=== PATIENT | female | born 1985 | race Caucasian/White ===

== ENCOUNTER 2016-12-10 13:57 | Inpatient (IN) | payer OTHER ==
[~2016-12-10] VITALS: Ht 167.6 cm; Wt 84.9 kg
[2016-12-14] MEDS ORDERED: METOCLOPRAMIDE HCL 5 MG/ML 2 ML VIAL IVP PRN (15:00)
[2016-12-14] MEDS ORDERED: RINGERS SOLUTION,LACTATED 1,000 ML IV PRN (15:00)
[2016-12-14] MEDS ORDERED: CITRIC ACID/SODIUM CITRATE 30 ML SOLUTION UDCUP PO PRN (15:00)
[2016-12-14] MEDS ORDERED: PREN1TAB80 PO (15:35)
[2016-12-14 15:37] LABS: BASOPHILS # (AUTO) 0.14 K/uL (0.00-0.20); BASOPHILS % (AUTO) 1.2 % (0.0-2.0); EOSINOPHILS # (AUTO) 0.07 K/uL (0.00-0.70); EOSINOPHILS % (AUTO) 0.55 % (1.0-6.0); HEMATOCRIT 40.3 % (36-46); HEMOGLOBIN 13.5 g/dL (12.0-16.0); LYMPHOCYTES # (AUTO) 2.2 K/uL (1.0-4.8); LYMPHOCYTES % (AUTO) 17.3 % (22.0-44.0); MEAN CORPUSCULAR HEMOGLOBIN 31.1 pg (26.0-34.0); MEAN CORPUSCULAR HGB CONC 33.5 G/dL (31.0-37.0); MEAN CORPUSCULAR VOLUME 93 fL (80-100); MONOCYTES # (AUTO) 0.5 K/uL (0.1-1.0); NEUTROPHILS # (AUTO) 9.6 K/uL (1.8-7.7); RED BLOOD CELL COUNT(AUTO) 4.34 MIL/uL (4.00-5.20); RED CELL DISTRIBUTION WIDTH 13.3 % (11.5-14.5); WHITE BLOOD COUNT (AUTO) 12.4 K/uL (4.5-11.0)
[2016-12-14] MEDS: RINGERS SOLUTION,LACTATED 1,000 ML IV SCH ×2 (15:39→20:27)
[2016-12-14] MEDS ORDERED: AMPICILLIN SODIUM 2 GM/NS 100 ML IV ONE (15:45)
[2016-12-14] MEDS ORDERED: INFLUENZA VIRUS VACCINE QVS 2017-18 (3YR+)/PF 60 MCG/0.5 ML SYRINGE IM ONE (16:00)
[2016-12-14] MEDS ORDERED: DINOPROSTONE 10 MG VAGINAL SUPPOSITORY VG ONE (16:15)
[2016-12-14] MEDS ORDERED: OXYGEN THERAPY IH SCH (20:00)
[2016-12-14] MEDS: AMPICILLIN SODIUM 1 GM/NS 50 ML IV SCH (20:26)
[2016-12-15] MEDS: AMPICILLIN SODIUM 1 GM/NS 50 ML IV SCH ×4 (00:29→12:15)
[2016-12-15] MEDS ORDERED: -PHARMACY NOTE- MISC ONE ×2 (04:15)
[2016-12-15] MEDS ORDERED: OXYTOCIN 30 UNITS/LACT RINGERS 500 ML IV PRN (05:36)
[2016-12-15] MEDS: FentaNYL CITRATE-PF 100 MCG/2 ML VIAL IVP PRN ×2 (06:26→06:31)
[2016-12-15] MEDS: RINGERS SOLUTION,LACTATED 1,000 ML IV SCH ×2 (08:36→12:08)
[2016-12-15] MEDS ORDERED: BUPIVACAINE HCL/PF 0.25% 10 ML VIAL ONE (08:54)
[2016-12-15] MEDS ORDERED: LIDOCAINE HCL/PF 2% 5 ML VIAL ONE (08:54)
[2016-12-15] MEDS ORDERED: BUPIVACAINE HCL 0.125%/NS/PF 100 ML ED ONE (09:03)
[2016-12-15] MEDS ORDERED: FentaNYL CITRATE-PF 100 MCG/2 ML VIAL ONE (09:05)
[2016-12-15] MEDS ORDERED: FentaNYL/BUPIV 0.125%/NS/PF 200 ML ED PRN (09:44)
[2016-12-15] MEDS ORDERED: DiphenhydrAMINE HCL 50 MG/ML VIAL IVP PRN (09:45)
[2016-12-15] MEDS ORDERED: PROMETHAZINE HCL 12.5 MG in SODIUM CHLORIDE 0.9% 50 ML IV PRN (09:45)
[2016-12-15] MEDS ORDERED: ONDANSETRON HCL 4 MG/2 ML VIAL IVP PRN (09:45)
[2016-12-15] MEDS ORDERED: NALBUPHINE HCL 10 MG/ML VIAL IVP PRN ×2 (09:45)
[2016-12-15] MEDS ORDERED: ACETAMINOPHEN/CODEINE 300-30 MG TABLET PO PRN ×2 (13:00)
[2016-12-15] MEDS ORDERED: LANOLIN 7 GM OINTMENT TP PRN (13:00)
[2016-12-15] MEDS ORDERED: BENZOCAINE 20%/MENTHOL 56 GM SPRAY CANISTER TP PRN (13:00)
[2016-12-15] MEDS ORDERED: GLYCERIN/WITCH HAZEL LEAF 40 PADS JAR TP PRN (13:00)
[2016-12-15] MEDS ORDERED: MAGNESIUM HYDROXIDE SUSPENSION 30 ML UDCUP PO SCH (21:00)
[2016-12-15] MEDS: IBUPROFEN 800 MG TABLET PO SCH (22:00)
[2016-12-15] MEDS ORDERED: SODIUM CHLORIDE 0.9% ED PRN (22:15)
[2016-12-15] MEDS ORDERED: BUPIVACAINE HCL ED PRN (22:15)
[2016-12-16] MEDS: IBUPROFEN 800 MG TABLET PO SCH ×2 (04:18→09:42)
[2016-12-16] MEDS ORDERED: IBUP-2070 PO (10:16)
[2016-12-16] MEDS ORDERED: DSS100 PO (10:17)
== END 2016-12-16 12:05 | disposition home or self-care (01) | DRG 775 ==
LOC: 4S 12-14 14:27 → OBSVTOIN 12-14 15:00
PROVIDERS: ADMIT Obstetrics & Gynecology; ATTEND Obstetrics & Gynecology
PROC: 10E0XZZ Delivery of Products of Conception, External Approach (ICD-10-PCS; principal; 2016-12-15)
PROC: 00HU33Z Insertion of Infusion Device into Spinal Canal, Percutaneous Approach (ICD-10-PCS; 2016-12-15)
DX: O80 Encounter for full-term uncomplicated delivery (principal); Z37.0 Single live birth; Z3A.40 40 weeks gestation of pregnancy
CPT/HCPCS: 87340; J0290; J2590; J3010; J3490; J7120

== ENCOUNTER 2019-09-11 09:47 | Inpatient (IN) | payer OTHER ==
[~2019-09-11] VITALS: Ht 170.2 cm; Wt 89.8 kg
[~2019-09-11 09:47] MED LIST: DSS100 PO; IBUP-2070 PO; PREN1TAB80 PO
[2019-09-11 10:05] VITALS: BP 130/85
[2019-09-11] MEDS ORDERED: RINGERS SOLUTION,LACTATED 1,000 ML IV ONE (10:18)
[2019-09-11] MEDS ORDERED: RINGERS SOLUTION,LACTATED 1,000 ML IV PRN (10:56)
[2019-09-11] MEDS ORDERED: FentaNYL CITRATE-PF 100 MCG/2 ML VIAL IVP PRN (11:00)
[2019-09-11] MEDS ORDERED: LIDOCAINE/PF 1% 30 ML VIAL INJ PRN (11:00)
[2019-09-11] MEDS ORDERED: METHYLERGONOVINE MALEATE 0.2 MG/ML VIAL IM PRN (11:00)
[2019-09-11] MEDS ORDERED: METOCLOPRAMIDE HCL 5 MG/ML 2 ML VIAL IVP PRN (11:00)
[2019-09-11] MEDS ORDERED: CITRIC ACID/SODIUM CITRATE 30 ML SOLUTION UDCUP PO PRN (11:00)
[2019-09-11] MEDS ORDERED: OXYTOCIN 30 UNITS/LACT RINGERS 500 ML IV PRN (11:06)
[2019-09-11 11:41] LABS: BASOPHILS % (AUTO) 0.4 % (0.0-2.0); EOSINOPHILS % (AUTO) 0.9 % (1.0-6.0); HEMATOCRIT 39.3 % (36-46); HEMOGLOBIN 13.5 g/dL (12.0-16.0); LYMPHOCYTES # (AUTO) 1.8 K/uL (1.0-4.8); LYMPHOCYTES % (AUTO) 16.5 % (22.0-44.0); MEAN CORPUSCULAR HEMOGLOBIN 30.8 pg (26.0-34.0); MEAN CORPUSCULAR HGB CONC 34.4 G/dL (31.0-37.0); MEAN CORPUSCULAR VOLUME 89 fL (80-100); MONOCYTES # (AUTO) 0.6 K/uL (0.1-1.0); MONOCYTES % (AUTO) 5.7 % (2.0-9.0); NEUTROPHILS # (AUTO) 8.4 K/uL (1.8-7.7); NEUTROPHILS % (AUTO) 76.5 % (40.0-70.0); PLATELET COUNT (AUTO)-OB 229 K/uL (150-450); RED CELL DISTRIBUTION WIDTH 12.9 % (11.5-14.5)
[2019-09-11] MEDS: RINGERS SOLUTION,LACTATED 1,000 ML IV SCH (12:04)
[2019-09-11] MEDS ORDERED: OXYGEN THERAPY IH SCH (20:00)
[2019-09-11] MEDS ORDERED: ROPIVACAINE HCL/PF 0.2% 100 ML ED ONE (20:29)
[2019-09-11] MEDS ORDERED: BUPIVACAINE HCL/PF 0.25% 10 ML VIAL ONE (20:29)
[2019-09-11] MEDS ORDERED: DiphenhydrAMINE HCL 50 MG/ML VIAL IVP PRN (22:30)
[2019-09-11] MEDS ORDERED: ONDANSETRON HCL 4 MG/2 ML VIAL IVP PRN (22:30)
[2019-09-11] MEDS ORDERED: NALBUPHINE HCL 10 MG/ML VIAL IVP PRN (22:30)
[2019-09-11] MEDS ORDERED: ROPIVACAINE HCL/PF 0.2% 100 ML ED PRN (22:30)
[2019-09-12] MEDS ORDERED: MINERAL OIL 30 ML UDCUP VG ONE
[2019-09-12] MEDS: RINGERS SOLUTION,LACTATED 1,000 ML IV SCH (01:00)
[2019-09-12] MEDS ORDERED: OXYTOCIN 30 UNITS/LACT RINGERS 500 ML IV ONE (02:59)
[2019-09-12] MEDS ORDERED: LANOLIN 7 GM OINTMENT TP PRN (03:00)
[2019-09-12] MEDS ORDERED: LIDOCAINE/PF 1% 30 ML VIAL INJ PRN (03:00)
[2019-09-12] MEDS ORDERED: BENZOCAINE 20%/MENTHOL 56 GM SPRAY CANISTER TP PRN (03:00)
[2019-09-12] MEDS ORDERED: MAGNESIUM HYDROXIDE SUSPENSION 30 ML UDCUP PO PRN (03:00)
[2019-09-12] MEDS ORDERED: OxyCODONE HCL/ACETAMINOPHEN 5-325 MG TABLET PO PRN ×2 (03:00)
[2019-09-12] MEDS ORDERED: GLYCERIN/WITCH HAZEL LEAF 40 PADS JAR TP PRN (03:00)
[2019-09-12] MEDS: IBUPROFEN 800 MG TABLET PO PRN ×2 (08:47→14:33)
[2019-09-13 07:44] LABS: BASOPHILS % (AUTO) 0.4 % (0.0-2.0); EOSINOPHILS % (AUTO) 1.8 % (1.0-6.0); HEMATOCRIT 37.3 % (36-46); HEMOGLOBIN 12.7 g/dL (12.0-16.0); LYMPHOCYTES # (AUTO) 2.4 K/uL (1.0-4.8); LYMPHOCYTES % (AUTO) 20.1 % (22.0-44.0); MEAN CORPUSCULAR HEMOGLOBIN 30.6 pg (26.0-34.0); MEAN CORPUSCULAR HGB CONC 34.1 G/dL (31.0-37.0); MEAN CORPUSCULAR VOLUME 90 fL (80-100); MONOCYTES # (AUTO) 0.8 K/uL (0.1-1.0); MONOCYTES % (AUTO) 6.3 % (2.0-9.0); NEUTROPHILS # (AUTO) 8.6 K/uL (1.8-7.7); NEUTROPHILS % (AUTO) 71.4 % (40.0-70.0); PLATELET COUNT (AUTO)-OB 195 K/uL (150-450); RED BLOOD CELL COUNT(AUTO) 4.15 MIL/uL (4.00-5.20); RED CELL DISTRIBUTION WIDTH 12.7 % (11.5-14.5)
== END 2019-09-13 10:45 | disposition home or self-care (01) | DRG 807 ==
LOC: 4S 09:47 → OBSVTOIN 09:47
PROVIDERS: ADMIT Obstetrics & Gynecology; ATTEND Obstetrics & Gynecology
PROC: 10E0XZZ Delivery of Products of Conception, External Approach (ICD-10-PCS; principal; 2019-09-12)
PROC: 10907ZC Drainage of Amniotic Fluid, Therapeutic from Products of Conception, Via Natural or Artificial Opening (ICD-10-PCS; 2019-09-12)
PROC: 3E0R3BZ Introduction of Anesthetic Agent into Spinal Canal, Percutaneous Approach (ICD-10-PCS; 2019-09-12)
PROC: 00HU33Z Insertion of Infusion Device into Spinal Canal, Percutaneous Approach (ICD-10-PCS; 2019-09-12)
DX: O80 Encounter for full-term uncomplicated delivery (principal); Z37.0 Single live birth; Z3A.39 39 weeks gestation of pregnancy; Z20.828 Contact with and (suspected) exposure to other viral communicable diseases
CPT/HCPCS: 76811; 86850; 86900; 86901; J2590; J2795; J3490; J7120